=== PATIENT | female | born 1980 | race Hispanic/Latino ===

== ENCOUNTER 2019-10-06 14:48 | Emergency (ER) | payer SELFPAY ==
[2019-10-06 15:36] LABS: #Basophils 0.1 thou/uL (0.0-0.2); #Eosinphils 0.2 thou/uL (0.0-0.7); #Lymphocytes 2.4 thou/uL (1.20-3.40); #Monocytes 0.5 thou/uL (0.11-0.59); %Basophils 0.8 % (0.0-1.0); %Eosinophils 1.8 % (0.0-10.0); %Lymphocytes 26.4 % (21.0-51.0); %Monocytes 5.2 % (0.0-10.0); %Neutrophils 65.8 % (42.0-75.0); Mean Corpuscular Volume 94.4 fL (78.0-98.0); Platelet Count 350 thou/uL (130-400); RBC Distribution Width 11.3 % (11.5-14.5); Red Blood Cell (RBC) Count 3.83 mill/uL (4.20-5.40); White Blood Cell (WBC) Count 9.1 thou/uL (4.8-10.8)
[2019-10-06 15:37] LABS: BHCG - Serum POSITIVE (NEGATIVE); Pregs Control Background? CLEAR/WHITE (CLR/WHITE); Pregs Control Bar Appear? YES (CONTROL BAR)
[2019-10-06 18:56] LABS: Bilirubin Negative (Negative); Blood, Urine 2+ (Negative); Glucose, Urine (Dipstick) Normal (Negative); Leukocyte 75 Leu/uL (Negative); Nitrite Negative (Negative); Protein, Urine (Dipstick) 20 mg/dL (Neg-Trace); RBC/HPF Greater than 50 HPF (0-3); Squamous Epithelial None Seen HPF (0-3); Urobilinogen Normal mg/dL (Less than 2)
[2019-10-06 18:58] LABS: Bacteria/HPF 1+ HPF (None Seen)
[2019-10-06 18:59] LABS: Clarity Hazy (Clear)
--- NOTE | 2019-10-06 20:16 | ULT ---
PELVIC ULTRASOUND: Date: 10-06-2019 Comparison: 06-24-19 History: Vaginal bleeding with . Recent miscarriage. Technique: Multiplanar grayscale sonographic imaging of the pelvis is obtained with transabdominal an d endovaginal imaging. FINDINGS: The uterus measures 9.3 x 5.3 x 5.4 cm. Neither ovary could be visualized on this exam. The endometri al stripe is thickened, measuring at least 2.1 cm in transverse dimension. There is heterogeneous mat erial filling and expanding the endocervical and the endometrial canal. Doppler interrogation of this material demonstrates no internal blood flow. This is felt to likely represent blood product associa jannie with spontaneous given the provided history of miscarriage. Retained products of madelin ption cannot be excluded. No intrauterine gestational sac is seen. IMPRESSION: No intrauterine gestational sac. The endometrial and endocervical canal is expanded and filled with h eterogeneous material. Neither ovary is visualized. POS: [facility]
== END 2019-10-06 21:36 | disposition home or self-care (01) ==
LOC: ERS 14:48
DX: O03.9 Complete or unspecified spontaneous abortion without complication (principal)
CPT/HCPCS: 36415; 76856; 81003; 81015; 84702; 84703; 85025; 86850; 86900; 86901; 88305; 96360; 96361